=== PATIENT | female | born 1940 | race Two or more races ===

== ENCOUNTER 2020-09-08 20:55 | Inpatient (IN) | payer MEDICARE, OTHER ==
[~2020-09-08] VITALS: Ht 157.5 cm; Wt 54.9 kg
[2020-09-08 22:00] VITALS: BP 146/66
[2020-09-08] MEDS ORDERED: BLOOD SUGAR DIAGNOSTIC 1 EACH STRIP IN ONE (22:00)
[2020-09-08] MEDS ORDERED: MAG HYDROX/AL HYDROX/SIMETH 30 ML UDC PO PRN (22:00)
[2020-09-08] MEDS: ACETAMINOPHEN 325 MG TABLET PO PRN (23:55)
[2020-09-09] MEDS: ZOLPIDEM TARTRATE 5 MG TABLET PO PRN ×2 (00:38→23:03)
[2020-09-09] MEDS ORDERED: ARIP15TA3 PO (01:38)
[2020-09-09] MEDS ORDERED: MELA3TAB41 PO (01:38)
[2020-09-09] MEDS ORDERED: MULT-754 PO (01:38)
[2020-09-09] MEDS ORDERED: FENO145T21 PO (01:38)
[2020-09-09] MEDS ORDERED: FERR325T23 PO (01:38)
[2020-09-09] MEDS ORDERED: PANT20TA2 PO (01:38)
[2020-09-09] MEDS ORDERED: LEVO50TA8 PO (01:38)
[2020-09-09] MEDS ORDERED: LORA-259 PO (01:38)
[2020-09-09] MEDS ORDERED: ERGO500014 PO (01:38)
[2020-09-09] MEDS ORDERED: MELO-105 PO (01:38)
[2020-09-09] MEDS ORDERED: MIRT30TA7 PO (01:38)
[2020-09-09] MEDS ORDERED: ATOR40TA PO (01:38)
[2020-09-09] MEDS ORDERED: CALC-1198 PO (01:38)
[2020-09-09] MEDS ORDERED: TRAZ-182 PO (01:38)
[2020-09-09] MEDS ORDERED: LOSA25TA27 PO (01:38)
[2020-09-09] MEDS ORDERED: CARB200T PO (01:38)
--- NOTE | 2020-09-09 02:33 | NUR ---
ADMISSION NOTES: ADMITTED THIS 79Y/O FEMALE PATIENT ADMIT FROM [facility]/INTALLY FROM HOME PT. ADMITTED TO GPS ON 5150 DTS HOLD , PER HOLD, PT. STATED THAT YOU ARE VERY DEPRESSED AND WISH TO , NOT FEELING WELL STOPPED TAKING MEDS ,UPON FACE TO FACE ASSESSMENT PATIENT IS A&O X 2 , DEPRESSED, FLAT /BLUNTED AFFECT , CALM ,COOPERTIVE AT THIS TIME ,DENIES SI /HI AT THIS TIME, PT. IS POOR HISTORIAN, POOR INSIGHT ,POOR JUDGEMENT, BOTH MD AWARE AND NOTIFIED OF THE ADMISSION, BELONGINGS CONTRABAND WERE DONE ,PT. RIGHTS DISCUSS BY GAMING COMMISSIONER , PROVIDE THE PT. WITH HANDBOOK, AND MEDICATIONS GUIDE, ENVIRONMENTAL SAFETY CHECK DONE, ENCOURAGED PT. VERBALIZED ANY FEELING CONCERN TO STAFF, ORIENT TO UNIT POLICY, NO ACUTE DISTRESS NOTED,VITAL SIGNS WNL ,DENIES ANY PAIN AT THIS TIME,WILL CONTINUE TO MONITOR FOR Q15 SAFETY AND BEHAVIOR.
[2020-09-09] MEDS: MAGNESIUM HYDROXIDE 30 ML UDC PO PRN (05:32)
--- NOTE | 2020-09-09 05:33 | NUR ---
CONSTIPATION: PATIENT GIVEN MOM FOR CONSTIPATION. HAS NOT HAD BM SINCE TUESDAY OR FOR 4 DAYS.
[2020-09-09 07:07] LABS: ALBUMIN 4.3 g/dL (3.4-5.0); BILIRUBIN,TOTAL 0.3 mg/dL (0.2-1.0); CALCIUM, SERUM 8.7 mg/dL (8.5-10.1); POTASSIUM 3.9 mmol/L (3.5-5.1); TOTAL PROTEIN, SERUM 7.2 g/dL (6.4-8.2)
[2020-09-09 07:18] LABS: CHOLESTEROL 167 mg/dL (<200); HDL CHOLESTEROL 78 mg/dL (40-60); LDL 79 mg/dL (0-99); TRIGLYCERIDES 125 mg/dL (30-150)
[2020-09-09] MEDS: LEVOTHYROXINE SODIUM 50 MCG TABLET PO SCH (07:57)
[2020-09-09 08:00] VITALS: BP 112/51
[2020-09-09] MEDS: PANTOPRAZOLE 40 MG TABLET.DR PO SCH (08:00)
[2020-09-09] MEDS: FENOFIBRATE NANOCRYS (145 MG) 145 MG TABLET PO SCH (08:37)
[2020-09-09] MEDS: CALCIUM CARB 600MG /VIT D 1 EACH TABLET PO SCH (08:38)
[2020-09-09] MEDS: LORAZEPAM 1 MG TABLET PO PRN ×2 (08:38→16:30)
[2020-09-09] MEDS: FERROUS SULFATE (325 MG) 325 MG/TAB TABLET PO SCH ×3 (08:38→16:30)
[2020-09-09] MEDS: MULTIVITAMINS,THERAGRAN 1 UDTAB TABLET PO SCH (08:38)
[2020-09-09] MEDS: ACETAMINOPHEN 325 MG TABLET PO PRN (08:38)
[2020-09-09] MEDS: LOSARTAN POTASSIUM 25 MG TABLET PO SCH (08:38)
[2020-09-09] MEDS: MELOXICAM 7.5 MG TABLET PO SCH ×2 (08:44→13:56)
[2020-09-09 16:00] VITALS: BP 106/51
[2020-09-09] MEDS: DIVALPROEX SODIUM 125 MG CAP.SPRINK PO SCH ×2 (20:16→20:36)
[2020-09-09 20:36] VITALS: BP 101/50
[2020-09-09 21:00] VITALS: BP 110/68
[2020-09-09] MEDS: MIRTAZAPINE 15 MG TABLET PO SCH (22:03)
[2020-09-09] MEDS: ATORVASTATIN 40 MG TABLET PO SCH (22:03)
--- NOTE | 2020-09-09 23:05 | NUR ---
RN NOTES: INSOMNIA PT. C/O INSOMNIA AMBIEN 5 MG PO PRN GIVEN PER PT. REQUEST, WILL CONTINUE TO MONITOR.
[2020-09-10] MEDS: ACETAMINOPHEN 325 MG TABLET PO PRN ×3 (06:32→19:15)
[2020-09-10 08:00] VITALS: BP 110/62
[2020-09-10] MEDS: LEVOTHYROXINE SODIUM 50 MCG TABLET PO SCH (08:11)
[2020-09-10] MEDS: PANTOPRAZOLE 40 MG TABLET.DR PO SCH (08:12)
[2020-09-10] MEDS: FERROUS SULFATE (325 MG) 325 MG/TAB TABLET PO SCH ×3 (08:12→17:57)
[2020-09-10] MEDS: CALCIUM CARB 600MG /VIT D 1 EACH TABLET PO SCH (08:12)
[2020-09-10] MEDS: MULTIVITAMINS,THERAGRAN 1 UDTAB TABLET PO SCH (08:12)
[2020-09-10] MEDS: FENOFIBRATE NANOCRYS (145 MG) 145 MG TABLET PO SCH (08:12)
[2020-09-10] MEDS: MELOXICAM 7.5 MG TABLET PO SCH (08:12)
[2020-09-10] MEDS: LOSARTAN POTASSIUM 25 MG TABLET PO SCH (08:13)
[2020-09-10] MEDS: ARIPIPRAZOLE 5 MG TABLET PO SCH (08:29)
[2020-09-10] MEDS: DIVALPROEX SODIUM 125 MG CAP.SPRINK PO SCH ×2 (08:29→21:10)
--- NOTE | 2020-09-10 13:06 | NUR ---
given tylenol 650 mg po for back pain.
[2020-09-10 16:00] VITALS: BP 123/61
--- NOTE | 2020-09-10 19:15 | NUR ---
given tylenol for back pain.
[2020-09-10 19:50] VITALS: BP 151/63
[2020-09-10] MEDS: ATORVASTATIN 40 MG TABLET PO SCH (21:10)
[2020-09-10] MEDS: MIRTAZAPINE 15 MG TABLET PO SCH (21:10)
[2020-09-10] MEDS: ZOLPIDEM TARTRATE 5 MG TABLET PO PRN (21:34)
--- NOTE | 2020-09-10 21:35 | NUR ---
Pt c/o insomnia. Least restrictive measures ineffective. Ambien 5 mg po prn given as ordered. Will continue to monitor.
--- NOTE | 2020-09-10 22:35 | NUR ---
Leonidas effective. Post 1 hr pt asleep in bed easy to arouse. Will continue to monitor. Frequent visual check done for safety.
[2020-09-11] MEDS: ACETAMINOPHEN 325 MG TABLET PO PRN ×3 (04:36→18:32)
--- NOTE | 2020-09-11 04:40 | NUR ---
Pt c/o back pain 07/30. Tylenol 650 mg po prn given as ordered. Will continue to monitor.
--- NOTE | 2020-09-11 05:49 | NUR ---
Post 1 hr Tylenol effective. UT 0/10. Will continue to monitor.
[2020-09-11] MEDS: LEVOTHYROXINE SODIUM 50 MCG TABLET PO SCH (06:33)
[2020-09-11] MEDS: PANTOPRAZOLE 40 MG TABLET.DR PO SCH (07:46)
[2020-09-11] MEDS: ARIPIPRAZOLE 5 MG TABLET PO SCH (08:06)
[2020-09-11 08:07] VITALS: BP 125/61
[2020-09-11] MEDS: FENOFIBRATE NANOCRYS (145 MG) 145 MG TABLET PO SCH (08:07)
[2020-09-11] MEDS: LOSARTAN POTASSIUM 25 MG TABLET PO SCH (08:07)
[2020-09-11] MEDS: DIVALPROEX SODIUM 125 MG CAP.SPRINK PO SCH ×2 (08:07→21:10)
[2020-09-11] MEDS: CALCIUM CARB 600MG /VIT D 1 EACH TABLET PO SCH (08:08)
[2020-09-11] MEDS: FERROUS SULFATE (325 MG) 325 MG/TAB TABLET PO SCH ×3 (08:08→17:18)
[2020-09-11] MEDS: MELOXICAM 7.5 MG TABLET PO SCH (08:08)
[2020-09-11] MEDS: MULTIVITAMINS,THERAGRAN 1 UDTAB TABLET PO SCH (08:08)
--- NOTE | 2020-09-11 09:57 | NUR ---
Initial Discharge Plan: Pt currently resides in a convent located at [address] [place] [address]; ([phone]). Per pt, she would like to return. SW will work with the pt and the MD regarding appropriate discharge planning. SW will form a safe and proper discharge.
[2020-09-11 16:00] VITALS: BP 144/68
--- NOTE | 2020-09-11 18:32 | NUR ---
RN-CO: tylenol 650 mg PO given for c/o back pain.
[2020-09-11 19:58] VITALS: BP 136/62
[2020-09-11] MEDS: ZOLPIDEM TARTRATE 5 MG TABLET PO PRN (21:10)
[2020-09-11] MEDS: ATORVASTATIN 40 MG TABLET PO SCH (21:10)
[2020-09-11] MEDS: MIRTAZAPINE 15 MG TABLET PO SCH (21:10)
--- NOTE | 2020-09-11 21:11 | NUR ---
Pt requested sleeping pill for difficulty of sleeping at night, PRN Ambien 5 mg given to pt. Will cont to monitor.
--- NOTE | 2020-09-11 22:14 | NUR ---
Pt appears sleeping at this time, easy to arouse. Cont to monitor and anticipate needs.Safety precautions observed.
[2020-09-12] MEDS: ACETAMINOPHEN 325 MG TABLET PO PRN ×3 (05:51→21:08)
--- NOTE | 2020-09-12 05:52 | NUR ---
Pt awake and c/o lower back pain 3/10 , PRN Tylenol given as ordered. Needs attended. Will cont to monitor.
[2020-09-12] MEDS: LEVOTHYROXINE SODIUM 50 MCG TABLET PO SCH (06:00)
--- NOTE | 2020-09-12 06:27 | NUR ---
Pt is awake and calm, "verbalized Tylenol effective, pain is little better" , all needs attended , safety and comfort measures observed, tolerated all meds. Will endorse continuity of care to am oncoming nurse.
[2020-09-12] MEDS: PANTOPRAZOLE 40 MG TABLET.DR PO SCH (07:53)
[2020-09-12 08:00] VITALS: BP_SYST 121; BP_DIAS 55; BP_DIAS 65
[2020-09-12] MEDS: ARIPIPRAZOLE 5 MG TABLET PO SCH (08:21)
[2020-09-12] MEDS: MULTIVITAMINS,THERAGRAN 1 UDTAB TABLET PO SCH (08:21)
[2020-09-12] MEDS: CALCIUM CARB 600MG /VIT D 1 EACH TABLET PO SCH (08:21)
[2020-09-12] MEDS: FERROUS SULFATE (325 MG) 325 MG/TAB TABLET PO SCH ×3 (08:21→16:28)
[2020-09-12] MEDS: DIVALPROEX SODIUM 125 MG CAP.SPRINK PO SCH ×2 (08:21→21:07)
[2020-09-12] MEDS: FENOFIBRATE NANOCRYS (145 MG) 145 MG TABLET PO SCH (08:21)
[2020-09-12] MEDS: LOSARTAN POTASSIUM 25 MG TABLET PO SCH (08:22)
[2020-09-12] MEDS: MELOXICAM 7.5 MG TABLET PO SCH (08:22)
[2020-09-12] MEDS ORDERED: ERGOCALCIFEROL (VITAMIN D 2) 50,000 UNIT CAPSULE PO SCH (09:00)
--- NOTE | 2020-09-12 11:20 | NUR ---
Individual Intervention: SW met with the pt at bedside and had a conversation regarding the pts current mindset on suicide. Pt states that she is starting to feel better and wants to be discharged home. Pt states that she has not had suicidal ideation and that she has been taking her medications and knows that she will have to.
--- NOTE | 2020-09-12 12:27 | NUR ---
GPS/RN-NOTES PATIENT REQUESTING TYLENOL FOR HER BACK PAIN. TYLENOL 650MG P.O GIVEN PRN ORDER. WILL CONT. MONITORING.
--- NOTE | 2020-09-12 13:30 | NUR ---
GPS/RN-NOTES PATIENT SITTING IN HER BED,CALM STATED" TYLENOL HELPS WITH MY BACK PAIN".
[2020-09-12 16:00] VITALS: BP 132/62
[2020-09-12 20:16] VITALS: BP 146/66
--- NOTE | 2020-09-12 21:10 | NUR ---
RN NOTE: LOWER BACK PAIN PATIENT C/O LOWER BACK PAIN 07/30, REQUESTED TO GET PAIN MEDICINE, PRN TYLENOL 650 MG PO ADMINISTERED. WILL CONTINUE TO MONITOR.
[2020-09-12] MEDS: ATORVASTATIN 40 MG TABLET PO SCH (21:14)
[2020-09-12] MEDS: MIRTAZAPINE 15 MG TABLET PO SCH (21:37)
[2020-09-12] MEDS: ZOLPIDEM TARTRATE 5 MG TABLET PO PRN (22:10)
--- NOTE | 2020-09-12 22:13 | NUR ---
RN NOTE: INSOMNIA PATIENT VERBALIZED THAT SHE IS UNABLE TO SLEEP & REQUESTED TO TAKE SLEEPING MEDICINE. PRN AMBIEN 10 MG PO ADMINISTERED. WILL CONTINUE TO MONITOR.
[2020-09-13] MEDS: ACETAMINOPHEN 325 MG TABLET PO PRN ×3 (05:55→18:39)
--- NOTE | 2020-09-13 05:57 | NUR ---
RN NOTE: LOWER BACK PAIN PATIENT C/O LOWER BACK PAIN 07/30, REQUESTED TO GET PAIN MEDICINE, PRN TYLENOL 650 MG PO ADMINISTERED. WILL CONTINUE TO MONITOR.
[2020-09-13 08:00] VITALS: BP 131/69
[2020-09-13] MEDS: PANTOPRAZOLE 40 MG TABLET.DR PO SCH (08:10)
[2020-09-13] MEDS: LEVOTHYROXINE SODIUM 50 MCG TABLET PO SCH (08:10)
[2020-09-13] MEDS: CALCIUM CARB 600MG /VIT D 1 EACH TABLET PO SCH (08:20)
[2020-09-13] MEDS: MELOXICAM 7.5 MG TABLET PO SCH (08:20)
[2020-09-13] MEDS: ARIPIPRAZOLE 5 MG TABLET PO SCH (08:20)
[2020-09-13] MEDS: DIVALPROEX SODIUM 125 MG CAP.SPRINK PO SCH ×2 (08:20→20:49)
[2020-09-13] MEDS: FENOFIBRATE NANOCRYS (145 MG) 145 MG TABLET PO SCH (08:20)
[2020-09-13] MEDS: FERROUS SULFATE (325 MG) 325 MG/TAB TABLET PO SCH ×3 (08:20→16:17)
[2020-09-13] MEDS: MULTIVITAMINS,THERAGRAN 1 UDTAB TABLET PO SCH (08:20)
[2020-09-13] MEDS: LOSARTAN POTASSIUM 25 MG TABLET PO SCH (08:21)
--- NOTE | 2020-09-13 12:14 | NUR ---
GPS/RN-NOTES PATIENT REQUESTING TYLENOL FOR HER BACK PAIN. TYLENOL 650MG P.O GIVEN PRN ORDER. WILL CONT. MONITORING.
--- NOTE | 2020-09-13 13:15 | NUR ---
GPS/RN-NOTES PATIENT SITTING IN HER BED,CALM AND COMFORTABLE , NO ACUTE DISTRESS NOTED. DENIES ANY PAIN OR DISCOMFORT.
[2020-09-13 16:00] VITALS: BP 133/63
--- NOTE | 2020-09-13 18:39 | NUR ---
GPS/RN-NOTES PATIENT REQUESTING TYLENOL FOR HER BACK PAIN. TYLENOL 650MG P.O GIVEN PRN ORDER. WILL ENDORSED TO INCOMING NURSE FOR MONITORING AND CONTINUITY OF CARE.
--- NOTE | 2020-09-13 19:30 | NUR ---
GPS RN NOTE, RECEIVED PATIENT AWAKE AND IN BED, NO S/S OR COMPLAINTS OF PAIN AT THIS TIME. PATIENT IS DISPLAYING NO S/S OF APPARENT DISTRESS AT THIS TIME. PATIENT BREATHING IS UNLABORED WITH EQUAL RISE AND FALL OF THE CHEST. PATIENT IS ALERT AND ORIENTED X 3 ON ROOM AIR WITH A SPO2 98%. PATIENT IS COMPLIANT WITH MEDICATIONS, CALM, POLITE, AND COOPERATIVE. PATIENT DENIES SUICIDAL AND HOMICIDAL IDEATIONS AT THIS TIME. PATIENT ASSISTED WITH TURNING AND REPOSITIONING Q2HR AND PRN FOR COMFORT AND CIRCULATION. PATIENT HAS NO NEEDS AT THIS TIME. PATIENT EDUCATED ON THE USE OF THE CALL AGUILAR. PATIENT BED SIDE RAILS UP X 2 FOR SAFETY. PATIENT BED IS LOCKED, LOW, WITH BED ALARM ON. WILL CONTINUE TO MONITOR THIS PATIENT Q15 MINUTES WITH THE HELP OF STAFF TO MAINTAIN SAFETY.
[2020-09-13 20:02] VITALS: BP 127/64
[2020-09-13] MEDS: MIRTAZAPINE 15 MG TABLET PO SCH (21:34)
[2020-09-13] MEDS: ATORVASTATIN 40 MG TABLET PO SCH (21:34)
[2020-09-13] MEDS: ZOLPIDEM TARTRATE 5 MG TABLET PO PRN (22:40)
[2020-09-14] MEDS: ACETAMINOPHEN 325 MG TABLET PO PRN ×3 (06:47→19:44)
--- NOTE | 2020-09-14 06:48 | NUR ---
RN NOTE: LOWER BACK PAIN PATIENT C/O LOWER BACK PAIN 07/30, REQUESTED TO GET PAIN MEDICINE, PRN TYLENOL 650 MG PO ADMINISTERED. WILL CONTINUE TO MONITOR.
[2020-09-14] MEDS: LEVOTHYROXINE SODIUM 50 MCG TABLET PO SCH (07:00)
[2020-09-14] MEDS: PANTOPRAZOLE 40 MG TABLET.DR PO SCH (07:30)
[2020-09-14 08:00] VITALS: BP 111/57
[2020-09-14] MEDS: LOSARTAN POTASSIUM 25 MG TABLET PO SCH (09:00)
[2020-09-14] MEDS: MULTIVITAMINS,THERAGRAN 1 UDTAB TABLET PO SCH (09:11)
[2020-09-14] MEDS: CALCIUM CARB 600MG /VIT D 1 EACH TABLET PO SCH (09:14)
[2020-09-14] MEDS: MELOXICAM 7.5 MG TABLET PO SCH (09:14)
[2020-09-14] MEDS: DIVALPROEX SODIUM 125 MG CAP.SPRINK PO SCH ×2 (09:14→21:16)
[2020-09-14] MEDS: ARIPIPRAZOLE 5 MG TABLET PO SCH (09:15)
[2020-09-14] MEDS: FERROUS SULFATE (325 MG) 325 MG/TAB TABLET PO SCH ×3 (09:15→17:00)
[2020-09-14] MEDS: FENOFIBRATE NANOCRYS (145 MG) 145 MG TABLET PO SCH (09:19)
--- NOTE | 2020-09-14 12:47 | NUR ---
RN NOTE :PATIENT C/O BACK PAIN MEDICATED WITH TYLENOL 650MG WILL CONTINUE TO MONITOR .
[2020-09-14 16:00] VITALS: BP 126/62
--- NOTE | 2020-09-14 19:46 | NUR ---
Pt c/o back pain 07/30. Tylenol 650 mg prn given as ordered. Will continue to monitor.
[2020-09-14 20:00] VITALS: BP 122/56
--- NOTE | 2020-09-14 20:57 | NUR ---
Post 1 hr Tylenol effective. TX 0/10. Will continue to monitor. Frequent visual check done for safety
[2020-09-14] MEDS: MIRTAZAPINE 15 MG TABLET PO SCH (21:15)
[2020-09-14] MEDS: ATORVASTATIN 40 MG TABLET PO SCH (21:15)
[2020-09-14] MEDS: ZOLPIDEM TARTRATE 5 MG TABLET PO PRN (21:16)
--- NOTE | 2020-09-14 21:18 | NUR ---
Pt c/o insomnia. Least restrictive measures ineffective. Ambien 10 mg po prn given as ordered. Will continue to monitor.
--- NOTE | 2020-09-14 22:18 | NUR ---
Post 1 hr cachorroien effective. Pt asleep in bed easy to arouse. Will continue to monitor. Frequent visual check done for safety.
[2020-09-15] MEDS: ACETAMINOPHEN 325 MG TABLET PO PRN ×3 (06:14→18:37)
[2020-09-15] MEDS: LEVOTHYROXINE SODIUM 50 MCG TABLET PO SCH (06:14)
--- NOTE | 2020-09-15 06:14 | NUR ---
Pt c/o back pain 07/30. Tylenol 650 mg po prn given as ordered. Will continue to monitor.
[2020-09-15 08:00] VITALS: BP 127/60
[2020-09-15] MEDS: FERROUS SULFATE (325 MG) 325 MG/TAB TABLET PO SCH ×3 (08:24→17:09)
[2020-09-15] MEDS: ARIPIPRAZOLE 5 MG TABLET PO SCH (08:24)
[2020-09-15] MEDS: MULTIVITAMINS,THERAGRAN 1 UDTAB TABLET PO SCH (08:24)
[2020-09-15] MEDS: PANTOPRAZOLE 40 MG TABLET.DR PO SCH (08:24)
[2020-09-15] MEDS: FENOFIBRATE NANOCRYS (145 MG) 145 MG TABLET PO SCH (08:25)
[2020-09-15] MEDS: DIVALPROEX SODIUM 125 MG CAP.SPRINK PO SCH ×2 (08:25→20:44)
[2020-09-15] MEDS: MELOXICAM 7.5 MG TABLET PO SCH (08:25)
[2020-09-15] MEDS: CALCIUM CARB 600MG /VIT D 1 EACH TABLET PO SCH (08:25)
[2020-09-15] MEDS: LOSARTAN POTASSIUM 25 MG TABLET PO SCH (08:27)
--- NOTE | 2020-09-15 09:00 | NUR ---
RN NOTE- PT ALERT ORIENTED PERSON PLACE TIME PURPOSE, DENIES SI, INTERACTIVE WITHDRAWN MED COMPLIANT NO BEHVIORAL ISSUES PO INTAKE GOOD
[2020-09-15 09:53] LABS: CALCIUM, SERUM 8.6 mg/dL (8.5-10.1); POTASSIUM 3.6 mmol/L (3.5-5.1)
--- NOTE | 2020-09-15 12:41 | NUR ---
RN NOTE :PATIENT C/O BACK PAIN 10/30 ,MEDICATED WITH TYLENOL 650MG WILL CONTINUE TO MONITOR .
--- NOTE | 2020-09-15 13:03 | NUR ---
RN NOTE- PT [phone] NOTIFIED DANCE COACH HENRY GUZMÁN. [facility] ACKNOLEGD
[2020-09-15 16:00] VITALS: BP 108/61
--- NOTE | 2020-09-15 18:38 | NUR ---
RN NOTE- C/O PAIN GENERALIZED. TYLENOL 650 MG GIVEN
[2020-09-15 20:00] VITALS: BP 120/56
[2020-09-15] MEDS: ZOLPIDEM TARTRATE 5 MG TABLET PO PRN (20:48)
[2020-09-15] MEDS: MIRTAZAPINE 15 MG TABLET PO SCH (21:46)
[2020-09-15] MEDS: ATORVASTATIN 40 MG TABLET PO SCH (21:47)
--- NOTE | 2020-09-16 00:30 | NUR ---
RN Note: Patient c/o difficulty falling asleep,Ambien 10 mg PO at 20:48 given w/ good effect.
[2020-09-16] MEDS: ACETAMINOPHEN 325 MG TABLET PO PRN ×3 (04:16→19:39)
[2020-09-16] MEDS: LEVOTHYROXINE SODIUM 50 MCG TABLET PO SCH (07:00)
[2020-09-16 07:49] LABS: CALCIUM, SERUM 8.3 mg/dL (8.5-10.1); CREATININE 0.8 mg/dL (0.6-1.3); MAGNESIUM 1.9 mg/dL (1.8-2.4); PHOSPHORUS 2.7 mg/dL (2.5-4.9); POTASSIUM 4.3 mmol/L (3.5-5.1)
[2020-09-16 08:00] VITALS: BP 116/62
[2020-09-16] MEDS: CALCIUM CARB 600MG /VIT D 1 EACH TABLET PO SCH (08:07)
[2020-09-16] MEDS: ARIPIPRAZOLE 5 MG TABLET PO SCH (08:07)
[2020-09-16] MEDS: LOSARTAN POTASSIUM 25 MG TABLET PO SCH (08:09)
[2020-09-16] MEDS: DIVALPROEX SODIUM 125 MG CAP.SPRINK PO SCH ×2 (08:09→21:07)
[2020-09-16] MEDS: FERROUS SULFATE (325 MG) 325 MG/TAB TABLET PO SCH ×3 (08:09→17:51)
[2020-09-16 08:10] LABS: THYROID STIMULATING HORMONE 0.954 uIU/mL (0.358-3.74); URIC ACID 2.3 mg/dL (2.6-7.2)
[2020-09-16] MEDS: PANTOPRAZOLE 40 MG TABLET.DR PO SCH (08:10)
[2020-09-16] MEDS: FENOFIBRATE NANOCRYS (145 MG) 145 MG TABLET PO SCH (08:15)
[2020-09-16] MEDS: MULTIVITAMINS,THERAGRAN 1 UDTAB TABLET PO SCH (08:16)
[2020-09-16] MEDS: MELOXICAM 7.5 MG TABLET PO SCH (08:16)
[2020-09-16] MEDS: MAGNESIUM HYDROXIDE 30 ML UDC PO PRN (08:32)
--- NOTE | 2020-09-16 08:32 | NUR ---
RN NOTE :Patient c/o constipation medicated with MOM , will continue to monitor .
--- NOTE | 2020-09-16 12:14 | NUR ---
RN NOTE :PATIENT C/O BACK PAIN 11/29 ,MEDICATED WITH TYLENOL 650MG WILL CONTINUE TO MONITOR .
--- NOTE | 2020-09-16 15:35 | NUR ---
Point of Contact: MIRLANDE contacted Sister Pauly ([phone]) and left a voicemail informing her that the pt is going to be discharged the next morning.
--- NOTE | 2020-09-16 15:48 | NUR ---
Point of Contact: SW called Sister Karla ([phone]) who stated that she will come and pick up worker the pt around 1pm.
[2020-09-16 16:00] VITALS: BP 142/68
--- NOTE | 2020-09-16 19:30 | NUR ---
RN NOTES PT REPORTED PAIN TYLENOL 650 MG GIVEN AND TOLERATED WELL WILL CONTINUE TO MONITOR.
[2020-09-16 20:13] VITALS: BP 113/53
[2020-09-16] MEDS: MIRTAZAPINE 15 MG TABLET PO SCH (21:33)
[2020-09-16] MEDS: ATORVASTATIN 40 MG TABLET PO SCH (21:34)
[2020-09-16] MEDS: ZOLPIDEM TARTRATE 5 MG TABLET PO PRN (22:35)
--- NOTE | 2020-09-16 23:30 | NUR ---
RN NOTES PT REQUESTED SLEEP MEDICATION. AMBIEN GIVEN AND TOLERATED WELL WILL CONTINUE TO MONITOR.
[2020-09-17] MEDS: ACETAMINOPHEN 325 MG TABLET PO PRN ×2 (06:01→12:20)
--- NOTE | 2020-09-17 06:35 | NUR ---
RN NOTES PT REPORTED PAIN TYLENOL 650MG GIVEN WILL CONTINUE TO MONITOR.
[2020-09-17] MEDS: LEVOTHYROXINE SODIUM 50 MCG TABLET PO SCH (07:51)
[2020-09-17] MEDS: PANTOPRAZOLE 40 MG TABLET.DR PO SCH (07:51)
[2020-09-17 08:00] VITALS: BP 124/60
[2020-09-17 08:07] VITALS: BP 124/60
[2020-09-17] MEDS: FERROUS SULFATE (325 MG) 325 MG/TAB TABLET PO SCH ×2 (08:07→12:17)
[2020-09-17] MEDS: CALCIUM CARB 600MG /VIT D 1 EACH TABLET PO SCH (08:07)
[2020-09-17] MEDS: FENOFIBRATE NANOCRYS (145 MG) 145 MG TABLET PO SCH (08:07)
[2020-09-17] MEDS: DIVALPROEX SODIUM 125 MG CAP.SPRINK PO SCH (08:07)
[2020-09-17] MEDS: LOSARTAN POTASSIUM 25 MG TABLET PO SCH (08:07)
[2020-09-17] MEDS: ARIPIPRAZOLE 5 MG TABLET PO SCH (08:07)
[2020-09-17] MEDS: MELOXICAM 7.5 MG TABLET PO SCH (08:07)
[2020-09-17] MEDS: MULTIVITAMINS,THERAGRAN 1 UDTAB TABLET PO SCH (08:09)
--- NOTE | 2020-09-17 10:05 | NUR ---
Point of Contact: Sister Pauly ([phone]) contacted the SW and stated that she will be arriving as well to warehouse picker the pt and stated that she wanted to come around 12:30pm. SW stated that would be acceptable.
--- NOTE | 2020-09-17 10:42 | NUR ---
Discharge Note: Pt will be discharged back to her [facility] located at [address] [id number]; ([phone]). Pt will be picked up by Sister Karla ([phone]) around 12:30pm. Upon discharge, pt appears to be in a euthymic mood and presented with a calm affect. Pt denies both suicidal and homicidal ideation as well as auditory and visual hallucinations. Pt appears to be alert and oriented x4 (time, place, situation and self). Pt appears to be ambulatory with an unsteady gait. Pt appears to be disheveled yet appropriately dressed. Pt will continue to be under the care of psychiatrist, Dr. Cortez, located at [address], [place] [address]; and pts student records coordinator, Dr. Lindsey, located at [address] [facility] [address], [place] [address]; . The multidisciplinary exit care form was done, printed, signed, and given to the patient.
--- NOTE | 2020-09-17 12:20 | NUR ---
RN NOTE: PAIN PT C/O 07/30 LOWER BACK PAIN. MEDICATED WITH TYLENOL 650 MG PO PRN
--- NOTE | 2020-09-17 12:40 | NUR ---
MEDICAL OFFICE SECRETARY NOTE: 79 YEAR OLD FEMALE DISCHARGED TO HOME IN STABLE CONDITION. COMPLIANT WITH MEDICATIONS, COOPERATIVE WITH TREATMENT PLANS. PATIENT DENIES SI/HI AND INSTRUCTED TO GO TO THE CLOSEST ER IF DEVELOPING SI/HI. BEHAVIOR IMPROVED, PSYCHIATRIC TREATMENT PLANS MET, MEDICAL TREATMENT PLANS DEFERRED FOR CONTINUAL MONITORING. EDUCATED PT ABOUT AFTERCARE PLAN AND COPY PROVIDED. RETURNED PERSONAL BELONGINGS TO PATIENT. RESPONSIBILITY OF CARE SIGNED BY SISTER CUCO. MEDICATIONS RECONCILED WITH DR. BRITO AND DR. SUÁREZ. PATIENT SIGNED DISCHARGE PAPERWORK. SKIN INTACT ON ADMIT AND DISCHARGE. PT ID BAND REMOVED. PT LEFT THE UNIT AT 12:40 VIA WHEELCHAIR AND PRIVATE CAR
== END 2020-09-17 12:40 | disposition home or self-care (01) | DRG 885 ==
LOC: GPS 20:55
PROVIDERS: ADMIT Psychiatry & Neurology Psychiatry; ATTEND Internal Medicine
DX: F31.30 Bipolar disorder, current episode depressed, mild or moderate severity, unspecified (principal); N17.0 Acute kidney failure with tubular necrosis; E22.2 Syndrome of inappropriate secretion of antidiuretic hormone; R45.851 Suicidal ideations; F29 Unspecified psychosis not due to a substance or known physiological condition; F41.9 Anxiety disorder, unspecified; M47.816 Spondylosis without myelopathy or radiculopathy, lumbar region; F03.90 Unspecified dementia, unspecified severity, without behavioral disturbance, psychotic disturbance, mood disturbance, and anxiety; E78.5 Hyperlipidemia, unspecified; E03.9 Hypothyroidism, unspecified; R53.1 Weakness; Z73.6 Limitation of activities due to disability; G89.29 Other chronic pain; I10 Essential (primary) hypertension; R27.8 Other lack of coordination; Z91.81 History of falling; Z79.899 Other long term (current) drug therapy; E86.1 Hypovolemia; T43.505A Adverse effect of unspecified antipsychotics and neuroleptics, initial encounter; Y92.099 Unspecified place in other non-institutional residence as the place of occurrence of the external cause
CPT/HCPCS: 36415; 80048-TC; 80053-TC; 80061-TC; 82962-TC; 83735-TC; 84100-TC; 84443-TC; 84550-TC; 87081-TC